=== PATIENT | male | born 1995 | race Caucasian/White ===

== ENCOUNTER 2024-02-21 03:57 | Emergency (ER) | payer OTHER ==
[~2024-02-21] VITALS: Ht 185.4 cm; Wt 80.0 kg
[2024-02-21 04:41] VITALS: BP 128/68; PULSE 94; RESP 14; TEMP 98.3; O2SAT 100
== END 2024-02-21 08:52 | disposition left against medical advice (07) ==
LOC: ER 03:57
DX: I88.9 Nonspecific lymphadenitis, unspecified (principal); Z53.21 Procedure and treatment not carried out due to patient leaving prior to being seen by health care provider